=== PATIENT | female | born 1990 | race Two or more races ===

== ENCOUNTER 2020-12-21 18:27 | Emergency (ER) | payer MEDICAID, OTHER ==
[~2020-12-21] VITALS: Ht 165.1 cm; Wt 81.6 kg
[2020-12-21 18:34] VITALS: BP 114/79
== END 2020-12-21 19:57 | disposition left against medical advice (07) ==
LOC: ER 18:29
DX: S80.861A Insect bite (nonvenomous), right lower leg, initial encounter (principal); Z53.21 Procedure and treatment not carried out due to patient leaving prior to being seen by health care provider; W57.XXXA Bitten or stung by nonvenomous insect and other nonvenomous arthropods, initial encounter; Y93.89 Activity, other specified; Y92.89 Other specified places as the place of occurrence of the external cause; Y99.8 Other external cause status

== ENCOUNTER 2021-12-13 05:35 | Emergency (ER) | payer MEDICAID ==
[~2021-12-13] VITALS: Ht 167.6 cm; Wt 77.0 kg
[2021-12-13 05:35] VITALS: BP 157/82
== END 2021-12-13 08:11 | disposition left against medical advice (07) ==
LOC: ER 05:35
DX: F41.9 Anxiety disorder, unspecified (principal); Z53.21 Procedure and treatment not carried out due to patient leaving prior to being seen by health care provider

== ENCOUNTER 2022-07-28 23:44 | Emergency (ER) | payer MEDICAID ==
[~2022-07-28] VITALS: Ht 165.1 cm; Wt 86.3 kg
[2022-07-29 01:09] LABS: Basophils # (auto) 0.1 10 ^3/uL (0-0.2); Basophils % (auto) 0.6 % (0.0-2.0); Eosinophils # (auto) 0 10 ^3/uL (0-0.8); Eosinophils % (auto) 0.4 % (0.0-7.0); Hematocrit 35.6 % (36.0-46.0); Hemoglobin 12.7 g/dL (12.2-16.2); Lymphocytes # (auto) 2.6 10 ^3/uL (0.4-5.4); Lymphocytes % (auto) 30.1 % (10.0-50.0); Mean Corpuscular Hemoglobin 28.1 pg (28.0-32.0); Mean Corpuscular Hgb Conc. 35.7 g/dL (32.0-36.0); Mean Corpuscular Volume 78.8 fL (80.0-100.0); Monocytes # (auto) 0.5 10 ^3/uL (0-1.3); Monocytes % (auto) 5.3 % (0.0-12.0); Neutrophils # (auto) 5.5 10 ^3/uL (1.6-8.6); Neutrophils % (auto) 63.6 % (37.0-80.0); Nucleated Red Blood Cells % 0.1 %; Red Blood Cells 4.52 10^6/uL (4.0-5.20); Red Cell Distribution Width 13.1 % (11.8-14.3); White Blood Cell 8.6 10^3/uL (4.4-10.8)
[2022-07-29 01:21] LABS: Albumin 3.5 g/dL (3.4-5.0); Calcium 8.8 mg/dL (8.5-10.1); Potassium 3.7 mmol/L (3.5-5.1)
[2022-07-29 01:23] LABS: BUN/Creatinine Ratio 27.7 (10.0-20.0)
[2022-07-29 01:26] LABS: Bilirubin, Total 1.2 mg/dL (0.2-1.0); Total Protein 7.2 g/dL (6.4-8.2)
[2022-07-29] MEDS ORDERED: HYDROmorphone HCL 2 MG/ML VL/or syr IV ONE (03:00)
[2022-07-29] MEDS ORDERED: ONDANSETRON HCL 4 MG/2 ML VIAL IV ONE (03:00)
[2022-07-29 03:24] LABS: Urine Amorphous Crystal FEW /hpf (None Seen); Urine Bacteria FEW /hpf (None Seen); Urine Blood Negative /uL (Negative); Urine Mucus FEW (None Seen); Urine Specific Gravity 1.025 (1.001-1.035); Urine WBC 3 /hpf (0 - 5)
[2022-07-29 06:00] VITALS: BP 98/65
[2022-07-29] MEDS ORDERED: PERCOT PO (06:53)
[2022-07-29] MEDS ORDERED: NITR-87 PO (06:53)
== END 2022-07-29 07:00 | disposition home or self-care (01) ==
LOC: ER 23:44
DX: R51.9 Headache, unspecified (principal); N93.8 Other specified abnormal uterine and vaginal bleeding; R10.2 Pelvic and perineal pain
CPT/HCPCS: 36415; 70450; 76830; 76856; 80053; 81001; 83605; 83690; 84702; 85025; 96374; 96375; 99285; J1170; J2405

== ENCOUNTER 2023-05-05 01:24 | Emergency (ER) | payer MEDICAID ==
[~2023-05-05] VITALS: Ht 165.1 cm; Wt 83.0 kg
[~2023-05-05 01:24] MED LIST: NITR-87 PO; PERCOT PO
[2023-05-05 01:39] VITALS: BP 112/75; PULSE 117; RESP 18; O2SAT 95
[2023-05-05] MEDS ORDERED: ONDANSETRON ODT 4 MG TAB PO ONE (02:00)
== END 2023-05-05 01:59 | disposition home or self-care (01) ==
LOC: ER 01:24
DX: F10.10 Alcohol abuse, uncomplicated (principal); R11.2 Nausea with vomiting, unspecified; Z79.899 Other long term (current) drug therapy; Y90.9 Presence of alcohol in blood, level not specified